=== PATIENT | female | born 1960 | race Caucasian/White ===

== ENCOUNTER 2016-11-23 14:42 | Emergency (ER) | payer MEDICAID ==
[2016-11-23 15:57] VITALS: BP 129/84
[2016-11-23] MEDS ORDERED: Ibuprofen TAB* 600 MG PO ONE (16:16)
[2016-11-23] MEDS ORDERED: Ibuprofen TAB* 600 MG ONE ×2 (16:18)
--- NOTE | 2016-11-23 16:22 | UC ---
Upper Extremity HPI - HPI Summary HPI Summary: Patient woke up in middle of night with severe left wrist and thumb pain, there is redness along the thumb, slightly swollen, painful ROM. unknown LINDA - History of Current Complaint Chief Complaint: UCUpperExtremity Stated Complaint: LEFT HAND SWOLLEN Time Seen by Provider: 11/23/16 16:09 Hx Obtained From: Patient Hx Last Menstrual Period: None ?: No Onset/Duration: Sudden Onset, Lasting Hours Severity Initially: Severe Severity Currently: Severe Location Of Pain: Is Discrete @ - left wrist and thumb + snuff box Character: Sharp, Aching Aggravating Factor(s): Movement Associated Signs And Symptoms: Positive: Negative - Risk Factors Non-Orthopedic Risk Factor: Negative DVT Risk Factors: Negative - Allergies/Home Medications Allergies/Adverse Reactions: Allergies Allergy/AdvReac Type Severity Reaction Status Date / Time Penicillins Allergy Severe Hives Verified 11/23/16 15:57 PMH/Surg Hx/FS Hx/Imm Hx Previously Healthy: Yes Endocrine History Of: Denies: Diabetes, Thyroid Disease, Hyperthyroidism, Hypothyroidism, Dyslipidemia Cardiovascular History Of: Denies: Cardiac Disorders, Hypertension, Pacemaker/ICD, Myocardial Infarction , Congestive Heart Failure, Atrial Fibrillation, Deep Vein Thrombosis, Bleeding Disorders Respiratory History Of: Reports: COPD Denies: Asthma, Bronchitis, Pneumonia, Pulmonary Embolism GI/ History Of: Reports: Gastroesophageal Reflux, Kidney Stones Denies: Ulcer, Gastrointestinal Bleed, Gall Bladder Disease, Diverticulitis, Renal Disease, Urosepsis Neurological History Of: Denies: TIA, CVA, Dementia, Seizures, Migraine Psychological History Of: Denies: Anxiety, Depression, Bipolar Disorder, Schizophrenia, Post Traumatic Stress Disorder Cancer History Of: Reports: Breast Cancer - She had this diagnosed 1-2 years ago. Denies: Lung Cancer, Colorectal Cancer, Prostate Cancer, Cervical Cancer Other History Of: Negative For: HIV, Hepatitis B, Hepatitis C - Surgical History Surgical History: Yes Surgery Procedure, Year, and Place: fistula repair, PARATHYROID SURGERY. right side breast lumpectomy - Family History Known Family History: Positive: Cardiac Disease, Hypertension Negative: Diabetes Family History: no cardio vascular issues in patients lineage - Social History Alcohol Use: Rare Substance Use Type: None Smoking Status (MU): Heavy Every Day Tobacco Smoker Type: Cigarettes Amount Used/How Often: 1/2 PPD Length of Time of Smoking/Using Tobacco: 20 YRS Have You Smoked in the Last Year: Yes - Immunization History Most Recent Influenza Vaccination: none Review of Systems Constitutional: Negative Skin: Other - erythema Eyes: Negative ENT: Negative Respiratory: Negative Cardiovascular: Negative Gastrointestinal: Negative Genitourinary: Negative Motor: Negative Neurovascular: Negative Musculoskeletal: Negative Neurological: Negative Psychological: Negative All Other Systems Reviewed And Are Negative: Yes Physical Exam Triage Information Reviewed: Yes Appearance: Well-Appearing, Well-Nourished, Pain Distress Vital Signs: Initial Vital Signs Temp 99.0 F 11/23/16 15:52 Pulse 92 11/23/16 15:52 Resp 18 11/23/16 15:52 BP 129/84 11/23/16 15:52 Pulse Ox 100 11/23/16 15:52 Vital Signs Reviewed: Yes Eye Exam: Normal Eyes: Positive: Conjunctiva Clear ENT Exam: Normal ENT: Positive: Normal ENT inspection, Hearing grossly normal, Pharynx normal, TMs normal Dental Exam: Normal Neck exam: Normal Neck: Positive: Supple, Nontender, No Lymphadenopathy Respiratory Exam: Normal Respiratory: Positive: Chest non-tender, Lungs clear, Normal breath sounds Cardiovascular Exam: Normal Cardiovascular: Positive: RRR, No Murmur, Pulses Normal Abdominal Exam: Normal Abdomen Description: Positive: Nontender, No Organomegaly, Soft Bowel Sounds: Positive: Present Musculoskeletal Exam: Normal Musculoskeletal: Positive: Strength Limited @, ROM Limited @, Edema @ - along radial side of wrist and into thenar eminence, ROm of thumb and wrist limited in all mothions, Other: - palpation of navicular eliecits pain Neurological Exam: Normal Neurological: Positive: Alert, Muscle Tone Normal Psychological Exam: Normal Skin Exam: Other - erythema along the side of thumb, no bruising, no open areas noted on hand Upper Extremity Course/Dx - Course Course Of Treatment: hx obtained, exam performed, med given for pain, xray obtained, neg for fracture, calcification around the tendon noted, splint applied and referral to ortho given. - Differential Dx/Diagnosis Differential Diagnosis/HQI/PQRI: Contusion, Fracture (Closed), Strain, Sprain, Other - cellulitis Provider Diagnoses: dequervains tendonitis. swelling. wrist pain Discharge - Discharge Plan Condition: Stable Disposition: HOME Patient Education Materials: Tendinitis (ED) Referrals: No Primary Care Phys,NOPCP [Primary Care Provider] - Additional Instructions: use the splint to rest the tendon of your thumb. continue with aleve twice a day for two week to reduce inflammation. follow up with orthopedic if symtpoms to not improve.
--- NOTE | 2016-11-23 17:12 | RAD ---
INDICATION: Pain base of thumb. No known injury COMPARISON: Left wrist the 2015 TECHNIQUE: AP, lateral, and oblique views were obtained. FINDINGS: There is remote posttraumatic and/or inflammatory/degenerative change about the base of the thumb with a soft tissue calcification or ossification. There is no evidence of acute traumatic injury. There are no additional significant bony findings. The soft tissues are normal IMPRESSION: SOFT TISSUE CALCIFICATION OR OSSIFICATION ABOUT THE BASE OF THE THUMB DESCRIBED. NO ACUTE INJURY OR SIGNIFICANT INTERVAL CHANGE.
== END 2016-11-23 17:31 | disposition home or self-care (01) ==
LOC: UCCORT 14:42
DX: M65.4 Radial styloid tenosynovitis [de Quervain] (principal); Z88.0 Allergy status to penicillin; F17.210 Nicotine dependence, cigarettes, uncomplicated
CPT/HCPCS: 99213; A9270-GY; G0463

== ENCOUNTER 2017-06-08 09:14 | Emergency (ER) | payer MEDICAID ==
[2017-06-08 09:30] VITALS: BP 124/72
--- NOTE | 2017-06-08 10:22 | UC ---
Respiratory Complaint HPI - HPI Summary HPI Summary: cough and achiness since yesterday. No known fever. hx of smoking but no known lung disesae. - History of Current Complaint Chief Complaint: UCRespiratory Stated Complaint: ACHY Time Seen by Provider: 06/08/17 10:12 Hx Obtained From: Patient Hx Last Menstrual Period: n/a ?: No Onset/Duration: Gradual Onset, Lasting Hours Timing: Constant Severity Initially: Moderate Severity Currently: Moderate Character: Cough: Nonproductive Aggravating Factors: Deep Breaths, Recumbent Position Alleviating Factors: Nothing Associated Signs And Symptoms: Positive: URI, Nasal Congestion, Hoarseness. Negative: Dyspnea, Fever, Chills, Pleuritic Chest Pain, Wheezing, Hemoptysis, Dizziness, Calf Pain, Calf Swelling, Edema - Risk Factors Pulmonary Embolism Risk Factors: Smoking - Allergies/Home Medications Allergies/Adverse Reactions: Allergies Allergy/AdvReac Type Severity Reaction Status Date / Time Penicillins Allergy Severe Hives Verified 06/08/17 09:30 Home Medications: Home Medications Pantoprazole Sodium 20 mg PO DAILY 06/08/17 [History Confirmed 06/08/17] PMH/Surg Hx/FS Hx/Imm Hx Previously Healthy: No - breast cancer. Other History Of: Negative For: HIV, Hepatitis B, Hepatitis C - Surgical History Surgical History: Yes Surgery Procedure, Year, and Place: fistula repair, PARATHYROID SURGERY. right side breast lumpectomy - Family History Known Family History: Positive: Cardiac Disease, Hypertension Negative: Diabetes Family History: no cardio vascular issues in patients lineage - Social History Alcohol Use: None Substance Use Type: None Smoking Status (MU): Heavy Every Day Tobacco Smoker Type: Cigarettes Amount Used/How Often: 1/2 PPD Length of Time of Smoking/Using Tobacco: 20 YRS Have You Smoked in the Last Year: Yes - Immunization History Most Recent Influenza Vaccination: none Review of Systems ENT: Sinus Congestion Respiratory: Cough All Other Systems Reviewed And Are Negative: Yes Physical Exam Triage Information Reviewed: Yes Appearance: Well-Appearing, No Pain Distress, Well-Nourished Vital Signs: Initial Vital Signs Temp 99.3 F 06/08/17 09:24 Pulse 108 06/08/17 09:24 Resp 20 06/08/17 09:24 BP 124/72 06/08/17 09:24 Pulse Ox 97 06/08/17 09:24 Vital Signs Reviewed: Yes Eye Exam: Normal ENT: Positive: Pharynx normal, TMs normal. Negative: Nasal drainage, Tonsillar swelling, Tonsillar exudate, Trismus Neck exam: Normal Neck: Positive: Supple, Nontender, No Lymphadenopathy Respiratory Exam: Normal Cardiovascular Exam: Normal Abdominal Exam: Normal Musculoskeletal Exam: Normal Neurological Exam: Normal Psychological Exam: Normal Skin Exam: Normal UC Diagnostic Evaluation - Laboratory O2 Sat by Pulse Oximetry: 97 Respiratory Course/Dx - Course Course Of Treatment: congestion cough and achiness. most c/w uri. she will take the azithromycin if this does not improve after day 10. - Differential Dx/Diagnosis Provider Diagnoses: uri Discharge - Discharge Plan Condition: Good Disposition: HOME Prescriptions: Azithromyxin JOSHUA (NF) [Z-Joshua (Zithromax) 250 mg tabs #6] 1 tab PO .TODAY, THEN 1 DAILY #6 tab Benzonatate CAP* [Tessalon 100 MG CAP*] 100 mg PO TID #20 cap Patient Education Materials: Upper Respiratory Infection (ED) Referrals: No Primary Care Phys,NOPCP [Primary Care Provider] - Additional Instructions: return for any worsening.
== END 2017-06-08 10:27 | disposition home or self-care (01) ==
LOC: UCCORT 09:14
DX: J06.9 Acute upper respiratory infection, unspecified (principal); F17.210 Nicotine dependence, cigarettes, uncomplicated; Z88.0 Allergy status to penicillin
CPT/HCPCS: 99212; G0463

== ENCOUNTER 2017-11-06 08:17 | Emergency (ER) | payer MEDICAID ==
[2017-11-06 09:17] VITALS: BP 128/80
[2017-11-06] MEDS ORDERED: Acetaminophen TAB* 325 MG PO ONE (09:36)
--- NOTE | 2017-11-06 09:38 | UC ---
FLU HPI - HPI Summary HPI Summary: body aches cough and fever for 2 days-- - History of Current Complaint Chief Complaint: UCGeneralIllness Stated Complaint: ACHY, CONGESTION Time Seen by Provider: 11/06/17 09:30 Hx Obtained From: Patient Hx Last Menstrual Period: n/a ?: No Onset/Duration: Sudden Onset Severity Currently: Moderate Severity Initially: Moderate Pain Intensity: 8 Pain Scale Used: 0-10 Numeric Associated Signs & Symptoms: Positive: Fever, Myalgia, Cough, Nasal Congestion, Headache Related Hx: Possible Flu/Infectious Exposure - Allergy/Home Medications Allergies/Adverse Reactions: Allergies Allergy/AdvReac Type Severity Reaction Status Date / Time Penicillins Allergy Hives Verified 11/06/17 09:13 PMH/Surg Hx/FS Hx/Imm Hx Previously Healthy: No GI/ History: Gastroesophageal Reflux Psychological History: Depression Cancer History: Breast Cancer Other History Of: Negative For: HIV, Hepatitis B, Hepatitis C - Surgical History Surgical History: Yes Surgery Procedure, Year, and Place: fistula repair, PARATHYROID SURGERY. right side breast lumpectomy - Family History Known Family History: Positive: Cardiac Disease, Hypertension Negative: Diabetes Family History: no cardio vascular issues in patients lineage - Social History Occupation: Employed Full-time - [employer] Lives: With Family Alcohol Use: None Substance Use Type: None Smoking Status (MU): Heavy Every Day Tobacco Smoker Type: Cigarettes Amount Used/How Often: 1/2 PPD Length of Time of Smoking/Using Tobacco: 20 YRS Have You Smoked in the Last Year: Yes Cessation Counseling: Counseled 3+Min - 10 Min - Immunization History Most Recent Influenza Vaccination: none Review of Systems Constitutional: Fever, Chills, Fatigue Skin: Negative Eyes: Negative ENT: Nasal Discharge, Sinus Congestion Respiratory: Cough Cardiovascular: Negative Gastrointestinal: Negative Genitourinary: Negative Motor: Negative Neurovascular: Negative Musculoskeletal: Arthralgia, Myalgia Neurological: Headache Psychological: Negative Is Patient Immunocompromised?: No All Other Systems Reviewed And Are Negative: Yes Physical Exam Triage Information Reviewed: Yes Appearance: Well-Nourished, Ill-Appearing, Pain Distress Vital Signs: Initial Vital Signs Temp 99 F 11/06/17 09:12 Pulse 96 11/06/17 09:12 Resp 18 11/06/17 09:12 BP 128/80 11/06/17 09:12 Pulse Ox 97 11/06/17 09:12 Vital Signs Reviewed: Yes Eye Exam: Normal Eyes: Positive: Conjunctiva Clear ENT Exam: Normal ENT: Positive: Normal ENT inspection, Hearing grossly normal, Pharynx normal, Nasal congestion, TMs normal, Uvula midline. Negative: Tonsillar swelling, Tonsillar exudate, Trismus, Muffled voice, Hoarse voice, Dental tenderness, Sinus tenderness Dental Exam: Normal Neck exam: Normal Neck: Positive: Supple, Nontender, No Lymphadenopathy Respiratory Exam: Normal Respiratory: Positive: Chest non-tender, Lungs clear, Normal breath sounds, No respiratory distress, No accessory muscle use Cardiovascular Exam: Normal Cardiovascular: Positive: RRR, No Murmur, Pulses Normal, Brisk Capillary Refill Musculoskeletal Exam: Normal Musculoskeletal: Positive: Strength Intact, ROM Intact, No Edema Neurological Exam: Normal Neurological: Positive: Alert, Muscle Tone Normal Psychological Exam: Normal Skin Exam: Normal Diagnostics - Laboratory Diagnostic Studies Completed/Ordered: influenza A/B (-) Flu Course/Dx - Course Course Of Treatment: z-max, albuterol, mucinex, increase fluids, nicotine cesasation information, follow with pcp - Differential Dx/Diagnosis Provider Diagnoses: Bronchitis, nicotine dependent Discharge - Discharge Plan Condition: Stable Disposition: HOME Prescriptions: Albuterol HFA INHALER* [Ventolin HFA Inhaler*] 2 puff INH Q4H PRN #1 mdi PRN Reason: cough.chest congestion Azithromycin TAB* [Zithromax TAB (Z-JOSHUA) 250 mg #6 tabs] 2 tab PO .TODAY, THEN 1 DAILY #1 joshua Patient Education Materials: Antitussives (By mouth), How to Use a Metered- Dose Inhaler (ED), How to Stop Smoking (ED), Acute Bronchitis (ED) Forms: *Work Release Referrals: [facility] [place] PHYSICIAN REFERRAL [Outside] - 3 Days
== END 2017-11-06 10:28 | disposition home or self-care (01) ==
LOC: UCCORT 08:17
DX: J40 Bronchitis, not specified as acute or chronic (principal); K21.9 Gastro-esophageal reflux disease without esophagitis; F32.9 Major depressive disorder, single episode, unspecified; Z85.3 Personal history of malignant neoplasm of breast; Z88.0 Allergy status to penicillin; Z71.6 Tobacco abuse counseling; F17.210 Nicotine dependence, cigarettes, uncomplicated
CPT/HCPCS: 87502; 99212; A9270-GY; G0463

== ENCOUNTER 2018-04-05 14:12 | Emergency (ER) | payer MEDICAID ==
[2018-04-05 14:32] VITALS: BP 119/69
--- NOTE | 2018-04-05 15:03 | UC ---
Abdominal Pain Female HPI - HPI Summary HPI Summary: Pt c/o sudden onset of abdomen/pelvic pain that woke her from sleep last night, then c/o sudden onset of four episode of diarrhea that was "blood only". Pt states that she has continuos colicy pain in pelvis/abdomen and pelvic pressure since onset.Pt has hx of breast cancer, has not had a colonoscopy, does not have PCP, and is a current every day smoker No hx of anal fissure or hemorrhoids. Denies food allergies, or recent use of antibiotics. - History of Current Complaint Chief Complaint: UCAbdominalPain Stated Complaint: URINARY/BOWL COMP Time Seen by Provider: 04/05/18 14:32 Hx Obtained From: Patient Hx Last Menstrual Period: n/a ?: No Onset/Duration: Sudden Onset, Lasting Hours Timing: Constant Severity Initially: Severe Severity Currently: Moderate Pain Intensity: 8 Location: Diffuse, Suprapubic Radiates: No Character: Aching, Colicy, Cramping, Dull, Sharp Aggravating Factor(s): Nothing Alleviating Factor(s): Nothing Associated Signs and Symptoms: Positive: Blood in Stool, Diarrhea Allergies/Adverse Reactions: Allergies Allergy/AdvReac Type Severity Reaction Status Date / Time Penicillins Allergy Hives Verified 11/06/17 09:13 PMH/Surg Hx/FS Hx/Imm Hx Previously Healthy: Yes Cancer History: Breast Cancer Other History Of: Negative For: HIV, Hepatitis B, Hepatitis C - Surgical History Surgical History: Yes Surgery Procedure, Year, and Place: fistula repair, PARATHYROID SURGERY. right side breast lumpectomy - Family History Known Family History: Positive: Cardiac Disease, Hypertension Negative: Diabetes Family History: no cardio vascular issues in patients lineage - Social History Occupation: Retired Lives: With Family Alcohol Use: None Substance Use Type: None Smoking Status (MU): Heavy Every Day Tobacco Smoker Type: Cigarettes Amount Used/How Often: 1/2 PPD Length of Time of Smoking/Using Tobacco: 20 YRS Have You Smoked in the Last Year: Yes Household Exposure Type: Cigarettes - Immunization History Most Recent Influenza Vaccination: none Review of Systems Constitutional: Fatigue Skin: Negative Eyes: Negative ENT: Negative Respiratory: Negative Cardiovascular: Negative Gastrointestinal: Abdominal Pain, Diarrhea, Other - BRBPR Genitourinary: Negative Motor: Negative Neurovascular: Negative Musculoskeletal: Negative Neurological: Negative Psychological: Negative Is Patient Immunocompromised?: No All Other Systems Reviewed And Are Negative: Yes Physical Exam Triage Information Reviewed: Yes Appearance: Ill-Appearing Vital Signs: Initial Vital Signs Temp 98.6 F 04/05/18 14:25 Pulse 101 04/05/18 14:25 Resp 16 04/05/18 14:25 BP 119/69 04/05/18 14:25 Pulse Ox 96 04/05/18 14:25 Vital Signs Reviewed: Yes Eye Exam: Normal ENT Exam: Normal ENT: Positive: Hearing grossly normal Dental: Positive: Gross Decay/Caries @ Neck exam: Normal Respiratory Exam: Normal Respiratory: Positive: Normal breath sounds Cardiovascular Exam: Normal Abdominal Exam: Other Abdomen Description: Positive: Other: - generalized tenderness, c/o increased pain wiht examination suprapubic Musculoskeletal Exam: Normal Neurological Exam: Normal Psychological Exam: Normal Skin Exam: Normal Diagnostics - Radiology No standard instances Radiology Interpretation Completed By: Radiologist - IMPRESSION: Mucosal thickening of the descending colon and sigmoid colon with some minimal pericolonic infiltration of fat suggestive of colitis although diverticulitis is not excluded. No pericolonic abscess is noted. No evidence of obstructive uropathy is noted. 2.1 cm low-density lesion in the left adrenal gland likely represents an adenoma. Abd Pain Female Course/Dx - Course Course Of Treatment: I discussed with the pt the need to establish care with a PCP as soon as possible and if symptoms worsen, do not improve that she needs to seek care at the closest emergency room. Pt verbalized understanding and agreed to plan of care. - Differential Dx/Diagnosis Differential Diagnosis: Diverticulitis Provider Diagnoses: bloody stool. abdominal pain Discharge - Sign-Out/Discharge Documenting (check all that apply): Patient Departure - Discharge Plan Condition: Stable Disposition: HOME Prescriptions: Ciprofloxacin TAB* [Cipro 500 MG TAB*] 500 mg PO BID #20 tab Patient Education Materials: Loperamide (By mouth), Rectal Bleeding (ED), Acute Diarrhea (ED), Acute Abdominal Pain (ED), Colitis (ED) Referrals: [facility] [place] [facility]IAN REFERRAL [Outside] - As Soon As Possible Christine Xavier DO [Doctor of Osteopathy] - As Soon As Possible No Primary Care Phys,NOPCP [Primary Care Provider] - Additional Instructions: Please establish care immediately with a PCP and if needed, a pantographer. We have provided contact information for both. If symptoms do not improve, please seek care immediately at the closest emergency room. Per institutional requirements, I have reviewed the chart, however, I was not consulted specifically or made aware of this patient by the above midlevel provider. I did not personally evaluate, interact with , or disposition this patient. - Billing Disposition and Condition Condition: STABLE Disposition: Home
--- NOTE | 2018-04-05 15:32 | RAD ---
Indication: Lower abdominal pain. CT of the abdomen and pelvis was performed without oral or IV contrast. Coronal and sagittal reconstructed images were obtained. The lung bases demonstrate no pleural fluid, nodules or masses. Heart is of normal size without evidence of pericardial effusion. Liver is normal in size. No focal lesions or intrahepatic ductal dilatation is noted. The gallbladder demonstrates no calcified gallstones. No pericholecystic fluid or wall thickening is noted. The common bile duct is not dilated. The pancreas demonstrates no mass or pancreatic duct dilatation. The spleen is normal in size. There is enlargement of the left adrenal gland with suggestion of a mass at the apex measuring 2.1 cm. Density is -4 to -32 and this likely represents an adenoma. The right adrenal is unremarkable. The kidneys demonstrate no hydronephrosis in either kidney although a nonobstructing calculi in the lower pole of the left kidney measuring up to 6.7 mm and in the lower pole of the right kidney measuring up to 3 mm. No retroperitoneal lymphadenopathy is noted. No dilated loops of bowel are noted. The stomach is partially collapsed. Aorta and inferior vena cava are unremarkable although there is atherosclerosis of the aorta. No retroperitoneal lymphadenopathy is CT of the pelvis demonstrates normal appendix. This is mucosal thickening of the descending colon extending to the sigmoid colon with some pericolonic infiltration of fat. Findings are suspicious for colitis. The possibility of diverticulitis is considered less likely although not totally excluded. No evidence of pericolonic abscess is noted. No evidence of extraluminal air is noted. The uterus and ovaries are grossly unremarkable. Urinary bladder is unremarkable. IMPRESSION: Mucosal thickening of the descending colon and sigmoid colon with some minimal pericolonic infiltration of fat suggestive of colitis although diverticulitis is not excluded. No pericolonic abscess is noted. No evidence of obstructive uropathy is noted. 2.1 cm low-density lesion in the left adrenal gland likely represents an adenoma.
== END 2018-04-05 15:57 | disposition home or self-care (01) ==
LOC: UCCORT 14:12
DX: R10.9 Unspecified abdominal pain (principal); K92.1 Melena; Z88.0 Allergy status to penicillin; F17.210 Nicotine dependence, cigarettes, uncomplicated
CPT/HCPCS: 74176; 81003; 82270; 99212; G0463

== ENCOUNTER 2018-06-12 08:10 | Emergency (ER) | payer MEDICAID ==
[2018-06-12 08:26] VITALS: BP 113/72
--- NOTE | 2018-06-12 08:44 | UC ---
UC General HPI - HPI Summary HPI Summary: 57-year-old female history of breast cancer not on any chemotherapy currently, presents with approximately 3 days of dysuria without hematuria. Denies any fever or back pain or flank pain. No prior episodes. No nausea or vomiting. - History of Current Complaint Chief Complaint: UCGU Stated Complaint: URINARY COMPLAINT Time Seen by Provider: 06/12/18 08:29 Hx Last Menstrual Period: n/a Pain Intensity: 10 - Allergy/Home Medications Allergies/Adverse Reactions: Allergies Allergy/AdvReac Type Severity Reaction Status Date / Time Penicillins Allergy Hives Verified 06/12/18 08:22 PMH/Surg Hx/FS Hx/Imm Hx - Additional Past Medical History Additional PMH: Breast cancer in the past Previously Healthy: Yes Other History Of: Negative For: HIV, Hepatitis B, Hepatitis C - Surgical History Surgical History: Yes Surgery Procedure, Year, and Place: fistula repair, PARATHYROID SURGERY. right side breast lumpectomy - Family History Known Family History: Positive: Cardiac Disease, Hypertension Negative: Diabetes Family History: no cardio vascular issues in patients lineage - Social History Alcohol Use: Occasionally Substance Use Type: None Smoking Status (MU): Heavy Every Day Tobacco Smoker Type: Cigarettes Amount Used/How Often: 1/2 PPD Length of Time of Smoking/Using Tobacco: 20 YRS Have You Smoked in the Last Year: Yes Household Exposure Type: Cigarettes - Immunization History Most Recent Influenza Vaccination: none Review of Systems Constitutional: Negative Skin: Negative ENT: Negative Respiratory: Negative Cardiovascular: Negative Gastrointestinal: Negative Genitourinary: Dysuria Musculoskeletal: Negative Psychological: Negative All Other Systems Reviewed And Are Negative: Yes Physical Exam - Summary Physical Exam Summary: Gen: alert, in no acute distress HEENT: EOMI, normocephalic, atruamatic Neck: supple, no masses CV: Normal s1 s2, no murmurs Resp: normal breath sounds b/l GI: no tenderness, no masses : Minimal suprapubic tenderness without rebound or guarding Musculoskeletal: normal ROM all 4 extremities Neuro: no obvious focal neurological deficits Skin: no rash Lymph: no lymphadenopathy Psych: appropriate affect, oriented Triage Information Reviewed: Yes Vital Signs: Initial Vital Signs Temp 36.5 C 06/12/18 08:19 Pulse 88 06/12/18 08:19 Resp 15 06/12/18 08:19 BP 113/72 09/24/18 08:19 Pulse Ox 98 06/12/18 08:19 Course/Dx - Course Course Of Treatment: Patient started on Macrobid twice a day, has a penicillin allergy and says it makes her short of breath. Agrees to and understands discharge instructions. - Differential Dx - Multi-Symptom Provider Diagnoses: UTI Discharge - Sign-Out/Discharge Documenting (check all that apply): Patient Departure All imaging exams completed and their final reports reviewed: No Studies - Discharge Plan Condition: Stable Disposition: HOME Prescriptions: Nitrofurantoin Monohyd/M-Cryst [Macrobid 100 mg Capsule] 100 mg PO BID 5 Days # 10 cap Patient Education Materials: Urinary Tract Infection in Women (DC) Referrals: No Primary Care Phys,NOPCP [Primary Care Provider] - Katie Glover MD [Medical Doctor] - Rubin Choi MD [Medical Doctor] - Additional Instructions: PLEASE MAKE AN APPOINTMENT TO BE SEEN BY A PRIMARY CARE DOCTOR WITHIN 1 WEEK PLEASE REPORT TO THE ER FOR ANY WORSENING OR CONCERNING SYMPTOMS - Billing Disposition and Condition Condition: STABLE Disposition: Home
== END 2018-06-12 08:48 | disposition home or self-care (01) ==
LOC: UCCORT 08:10
DX: N39.0 Urinary tract infection, site not specified (principal); Z85.3 Personal history of malignant neoplasm of breast; Z88.0 Allergy status to penicillin; F17.210 Nicotine dependence, cigarettes, uncomplicated
CPT/HCPCS: 81003; 87086; 99211; G0463

== ENCOUNTER 2018-06-22 15:26 | Emergency (ER) | payer MEDICAID ==
[2018-06-22 16:28] VITALS: BP 120/83
--- NOTE | 2018-06-22 17:11 | UC ---
Abdominal Pain Female HPI - HPI Summary HPI Summary: Pt presents with intermittent, persistent LLQ pain that began ~ 06/09/18. Pt was seen twice at for c/o LLQ pain and dysuria prior to todays visit. Pt has a hx of breast cancer, not currently receiving chemo, and does not have PCP. Has not had colonoscopy. Pt reports change in bowel pattern and now is constipated. Pt regular BM pattern is daily. Some days she reports she does not empty her bowel BM today and reports it was dark green. - History of Current Complaint Chief Complaint: UCGeneralIllness Stated Complaint: LOWER LEFT ABD PAIN Time Seen by Provider: 06/22/18 17:02 Hx Obtained From: Patient Hx Last Menstrual Period: n/a ?: No Onset/Duration: Gradual Onset, Lasting Weeks, Still Present Timing: Constant Severity Initially: Mild Severity Currently: Moderate Pain Intensity: 6 Location: Discrete At: LLQ Radiates to: Inguinal Character: Burning, Colicy, Cramping, Dull, Sharp Aggravating Factor(s): Nothing Alleviating Factor(s): Nothing Associated Signs and Symptoms: Positive: Constipation Allergies/Adverse Reactions: Allergies Allergy/AdvReac Type Severity Reaction Status Date / Time Penicillins Allergy Hives Verified 06/22/18 16:21 PMH/Surg Hx/FS Hx/Imm Hx Previously Healthy: No Respiratory History: COPD - smoker Cancer History: Breast Cancer Other History Of: Negative For: HIV, Hepatitis B, Hepatitis C - Surgical History Surgical History: Yes Surgery Procedure, Year, and Place: fistula repair, PARATHYROID SURGERY. right side breast lumpectomy - Family History Known Family History: Positive: Cardiac Disease, Hypertension Negative: Diabetes Family History: no cardio vascular issues in patients lineage - Social History Occupation: Employed Full-time Lives: With Family Alcohol Use: Rare Substance Use Type: None Smoking Status (MU): Heavy Every Day Tobacco Smoker Type: Cigarettes Amount Used/How Often: 1/2 PPD Length of Time of Smoking/Using Tobacco: 20 YRS Have You Smoked in the Last Year: Yes Household Exposure Type: Cigarettes - Immunization History Most Recent Influenza Vaccination: none Vaccination Up to Date: No Review of Systems Constitutional: Negative Skin: Negative Eyes: Negative ENT: Negative Respiratory: Negative Cardiovascular: Negative Gastrointestinal: Abdominal Pain Genitourinary: Negative Motor: Negative Neurovascular: Negative Musculoskeletal: Negative Neurological: Negative Psychological: Negative Is Patient Immunocompromised?: No All Other Systems Reviewed And Are Negative: Yes Physical Exam Triage Information Reviewed: Yes Appearance: Well-Appearing Vital Signs: Initial Vital Signs Temp 97.3 F 06/22/18 16:23 Pulse 97 06/22/18 16:23 Resp 18 06/22/18 16:23 BP 120/83 06/22/18 16:23 Pulse Ox 95 06/22/18 16:23 Vital Signs Reviewed: Yes Eye Exam: Normal ENT Exam: Normal Dental: Positive: Gross Decay/Caries @, Dental Fracture @ Neck exam: Normal Respiratory Exam: Normal Cardiovascular Exam: Normal Abdomen Description: Positive: Other: - LLQ pain Bowel Sounds: Positive: Present Musculoskeletal Exam: Normal Neurological Exam: Normal Psychological Exam: Normal Skin Exam: Normal Abd Pain Female Course/Dx - Course Course Of Treatment: I discussed with the pt the need to make an apoinment with a PCP as soon as possible. Pt verbalized understanding and agreed to plan of care. - Differential Dx/Diagnosis Differential Diagnosis: Constipation, Diverticulitis, Gall Bladder Disease Provider Diagnoses: abdominal pain Discharge - Sign-Out/Discharge Documenting (check all that apply): Patient Departure All imaging exams completed and their final reports reviewed: No Studies - Discharge Plan Condition: Stable Disposition: HOME Patient Education Materials: Abdominal Pain (ED) Forms: *Work Release Referrals: [facility] [Outside] - As Soon As Possible No Primary Care Phys,NOPCP [Primary Care Provider] - Additional Instructions: Please note that if your symptoms worsen then you need to seek care immediately at the closest emergency department. - Billing Disposition and Condition Condition: STABLE Disposition: Home
== END 2018-06-22 17:18 | disposition home or self-care (01) ==
LOC: UCCORT 15:26
DX: R10.32 Left lower quadrant pain (principal); Z88.0 Allergy status to penicillin; F17.210 Nicotine dependence, cigarettes, uncomplicated
CPT/HCPCS: 99211; G0463

== ENCOUNTER 2018-10-12 08:03 | Emergency (ER) | payer MEDICAID, OTHER ==
[2018-10-12 08:18] VITALS: BP 122/68
--- NOTE | 2018-10-12 08:47 | UC ---
General HPI - HPI Summary HPI Summary: Patient fell in parking lot on her way to work this morning just before 7 AM. She works at [employer] in [place]. States she thinks she tripped or stepped on a rock. No lightheadedness. No LOC. No head injury. Landed on mainly on her right knee. Top of her right foot hurts as well. Is able to ambulate. No Hx of broken bones in the past. - History of Current Complaint Chief Complaint: UCLowerExtremity Stated Complaint: RIGHT KNEE/ANKLE INJURY - W/C Time Seen by Provider: 10/12/18 08:38 Hx Last Menstrual Period: n/a Pain Intensity: 7 - Allergy/Home Medications Allergies/Adverse Reactions: Allergies Allergy/AdvReac Type Severity Reaction Status Date / Time Penicillins Allergy Hives Verified 10/12/18 08:17 Home Medications: Home Medications Acetaminophen [Eq 8Hr Arthritis Pain Rel] 1,300 mg PO ONCE PRN 10/12/18 [ History Confirmed 10/12/18] PMH/Surg Hx/FS Hx/Imm Hx Previously Healthy: Yes Other History Of: Negative For: HIV, Hepatitis B, Hepatitis C - Surgical History Surgical History: Yes Surgery Procedure, Year, and Place: fistula repair, PARATHYROID SURGERY. right side breast lumpectomy - Family History Known Family History: Positive: Cardiac Disease, Hypertension Negative: Diabetes Family History: no cardio vascular issues in patients lineage - Social History Alcohol Use: Rare Substance Use Type: None Smoking Status (MU): Heavy Every Day Tobacco Smoker Type: Cigarettes Amount Used/How Often: 1/2 PPD Length of Time of Smoking/Using Tobacco: 20 YRS Have You Smoked in the Last Year: Yes Household Exposure Type: Cigarettes - Immunization History Most Recent Influenza Vaccination: none Vaccination Up to Date: No Review of Systems All Other Systems Reviewed And Are Negative: Yes Physical Exam Triage Information Reviewed: Yes Vital Signs: Initial Vital Signs Temp 98.1 F 10/12/18 08:14 Pulse 74 10/12/18 08:14 Resp 18 10/12/18 08:14 BP 122/68 10/12/18 08:14 Pulse Ox 98 10/12/18 08:14 Vital Signs Reviewed: Yes Eye Exam: Normal Musculoskeletal Exam: Other - 3 cm abrasion on anterior knee on right. Pain over abrasion and lateral patella. No significant edema or ecchymosis. Right ankle, mild tendernss on dosum of foot. No ankle tenderness. FROM of ankle. Some pain with ROM of right knee Diagnostics - Radiology Right Knee xray Radiology Interpretation Completed By: Radiologist Summary of Radiographic Findings: No acute injury. If symptoms persist, consider repeat imaging Course/Dx - Course Course Of Treatment: This is a 58 yr old who fell in parking lot at work and landed on right knee. Assessment. Right knee xray: Negative for acute injury. Dx: Right knee contusion and abrasion. Patient unclear of last tetanus shot - Tdap given here. Plan. Follow up with Dr. Alejandro regarding a possible workers comp injury if symptoms persist. Recommend ice, rest, elevate and ibuprofen as needed for pain/swelling. If able to ambulate and stand tomorrow recommend can return to work with frequent breaks - Diagnoses Provider Diagnosis: Knee contusion Discharge - Sign-Out/Discharge Documenting (check all that apply): Post-Discharge Follow Up All imaging exams completed and their final reports reviewed: Yes - Discharge Plan Condition: Good Disposition: HOME Referrals: Era Mendez NP [Primary Care Provider] - Jonathan Alejandro MD [Medical Doctor] - Additional Instructions: Follow up with Dr. Alejandro regarding a possible workers comp injury if symptoms persist Recommend ice, rest, elevate and ibuprofen as needed for pain/swelling If able to ambulate and stand tomorrow recommend can return to work with frequent breaks Keep abrasion clean and dry with bandage - wash with soap and water daily - Billing Disposition and Condition Condition: GOOD Disposition: Home
[2018-10-12] MEDS: Tetan/Diph/Pertus SYR(Tdap)* 0.5 ML SYR(BOOSTRIX) use SYR IM ONE (09:25)
== END 2018-10-12 09:30 | disposition home or self-care (01) ==
LOC: UCCORT 08:03
DX: S80.01XA Contusion of right knee, initial encounter (principal); W19.XXXA Unspecified fall, initial encounter; Y92.481 Parking lot as the place of occurrence of the external cause; Z88.0 Allergy status to penicillin; F17.210 Nicotine dependence, cigarettes, uncomplicated
CPT/HCPCS: 90471; 90715; 99212; G0463

== ENCOUNTER 2018-11-07 09:37 | Emergency (ER) | payer MEDICAID, OTHER ==
--- OUTSIDE RECORDS SUMMARY | 2018-11-07 09:59 | XMS REPORT | Continuity of Care Document ---
:1960 External Reference #:[id number] Author Name Russel Madrigal MD Address [address] [place] [address] Care Team Providers Name Role Phone Carrie Dangelo RNNP Care Team Information Telephonic Nurse Case Manager Unavailable Era Mendez FNP Primary Care Physician Unavailable Payers Date Identification Numbers Payment Provider Subscriber Policy Number: [id number] Medicaid Shannan Zafar PayID: [id number] [place] [address] Expires: 2012 Policy Number: [id number] Healthy Living Partner Shannan Zafar PayID: [id number] [place] [address] Advance Directives Description No Information Available Problems Date Description Provider Status Onset: 11/01/2012 Breast lump Fazal Enamorado MD Active Onset: 11/08/2012 Malignant neoplasm of female breast Fazal Enamorado MD Active Onset: 05/30/2013 History and physical examination, Fazal Enamorado MD Active follow-up Family History Date Family Member(s) Observation Comments Father Heart Disease Father Cancer Mother Chronic Obstructive Pulmonary Disease (COPD) : (age 77 Mother due to COPD Years) Mother Cancer First Brother Heart Disease Second Brother Fibromyalgia Second Brother IBS First Sister Heart Disease : (age 83 Paternal Grandfather due to Unknown Causes Years) : (age 57 Paternal Grandmother due to Aneurysm Brain Years) Maternal Grandfather due to Unknown Causes () Social History Type Date Description Comments Sex Unknown Marital Status Lives With Home Environment Lives With Diet Patient follows no dietary restrictions 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 Working Tobacco Use Start: Unknown currently smokes 1/2 x 30 yrs Pack Daily Smokeless Tobacco Never Used Smokeless Tobacco ETOH Use Rarely consumes alcohol Tobacco Use Start: Unknown Light tobacco smoker (10 or fewer cigarettes/day) Recreational Drug Use Denies Drug Use Smoking Status Reviewed: 10/31/18 Light tobacco smoker (10 or fewer cigarettes/day) Allergies, Adverse Reactions, Alerts Date Description Reaction Status Severity Comments 10/27/2012 Penicillin hives, can't breathe Active Medications Medication Date Status Form Strength Qnty SIG Indications Ordering Provider Anastrozole / Active Tablets 1mg take 1 Unknown 0000 tablet once daily Venlafaxine HCL ER / Active Caps ER 75mg 1 po Unknown 0000 24HR daily No Active 11/01/ Hx Unknown Medications 2012 - 2012 Acetaminophen/Codei / Hx Tablets 300-60mg Unknown ne #4 0000 - 2017 Ondansetron HCL / Hx Tablets 8mg q 8 hr/ Unknown 0000 - prn 2017 Prochlorperazine / Hx Tablets 10mg po prn Unknown Maleate 0000 - nausea 2017 Immunizations CPT Code Status Date Vaccine Lot # [id number] Given 07/14/2018 Influenza Virus Vaccine, Quadrivalent, 36 Mos+, [id number] .[id number] Vital Signs Date Vital Result Comment 10/31/2018 11:07am BP Systolic 123 mmHg BP Diastolic 88 mmHg Body Temperature 98.5 F Heart Rate 96 /min Respiratory Rate 20 /min Height 64.50 inches 5'4.50" Weight 177.38 lb BMI (Body Mass Index) 30.0 kg/m2 BSA (Body Surface Area) 1.87 m2 [place] body weight in kilograms 56 kg O2 % BldC Oximetry 91 % Ra Pain Level 0 09/28/2018 9:56am BP Systolic Sitting Left Arm 133 mmHg BP Diastolic Sitting Left Arm 83 mmHg Heart Rate 97 /min Respiratory Rate 18 /min Height 64.50 inches 5'4.50" Weight 180.00 lb BMI (Body Mass Index) 30.4 kg/m2 BSA (Body Surface Area) 1.88 m2 [place] body weight in kilograms 56 kg O2 % BldC Oximetry 93 % 07/14/2018 1:04pm BP Systolic Sitting Left Arm 116 mmHg BP Diastolic Sitting Left Arm 74 mmHg Heart Rate 84 /min Respiratory Rate 18 /min Height 64.50 inches 5'4.50" Weight 179.00 lb BMI (Body Mass Index) 30.2 kg/m2 BSA (Body Surface Area) 1.88 m2 [place] body weight in kilograms 56 kg 05/30/2013 9:55am BP Systolic Sitting Left Arm 122 mmHg BP Diastolic Sitting Left Arm 78 mmHg Heart Rate 100 /min Respiratory Rate 16 /min Height 64.50 inches 5'4.50" Weight 173.00 lb BMI (Body Mass Index) 29.2 kg/m2 BSA (Body Surface Area) 1.85 m2 11/01/2012 1:24pm BP Systolic Sitting Right Arm 124 mmHg BP Diastolic Sitting Right Arm 79 mmHg Heart Rate 89 /min Respiratory Rate 20 /min Height 64.50 inches 5'4.50" Weight 167.00 lb BMI (Body Mass Index) 28.2 kg/m2 Results Test Date Facility Test Result H/L Range Note Urine Dipstick 07/14/2018 [facility] Ua Clarity - Clear Ua Leuko - Negative Ua Nitrite - Negative Ua Urobilinogen - Low 0.2 - 1.0 E.U./dL Ua Protein - Negative Ua PH 6 Low 6.5-7.5 Ua Blood - Negative Ua Specific [place] 1.020 1.010-1.030 Ua Ketones - Negative Ua Bilirubin - Negative Ua Glucose - Negative T7/TSH 07/14/[address] T3 Uptake 30 % Low 31-39 1 [address] [place] [address] [phone] Thyroxine (T4) 11.2 g/dL N 4.7-13.3 T7 3.36 g/dL Low 5.0-12.0 Thyroid Stim Hormone 1.41 uIU/mL N 0.30-4.20 CBC W/Automated Diff 07/14/[address] White Blood 7.4 K/uL N 3.1-10.7 [address] [facility] [place] [address] [phone] Red Blood Count 4.46 M/uL N 3.90-5.40 Hemoglobin 13.6 gm/dL N 11.6-15.8 Hematocrit 41.5 % N 36.0-46.1 Mean Cell Volume 93.0 fl N 80.9-99.0 Mean Corpuscular HGB 30.5 pg N 25.9-32.7 Mean Corpuscular HGB Conc 32.8 g/dL N 30.8-34.3 Platelet Count 318 K/uL N 155-360 Red Cell Distri Width SD 49.9 fl High 3-47 Red Cell Distri Width %CV 15.0 % High 11.7-14.4 Mean Platelet Volume 10.2 fL N 8.9-12.4 Neut% 51.9 % N 40.4-72.8 Lymph % 38.4 % N 20.0-42.0 [place] % 6.4 % N 4.3-13.2 Eo% 3.0 % N 0.0-6.6 Bas% 0.3 % N 0.0-1.1 Neut# 3.84 K/uL N 1.8-7.0 Lymph # 2.84 K/uL N 1.0-4.0 [place] # 0.47 K/uL N 0.3-0.9 Eos # 0.22 K/uL N 0.0-0.5 Baso # 0.02 K/uL N 0.0-0.1 Comprehensive Metabolic 07/14/[address] Glucose 78 mg/dL N 74 -106 Panel [address] [place], [place] [id number] [phone] BUN 12 mg/dL N 7-18 Creatinine 0.7 mg/dL N 0.6-1.3 Glom Filtration Rate, Estimate >60 mL/min >60 If >60 mL/min >60 2 BUN/Creat 17.1 ratio Sodium 142 mmol/L N 136-145 Potassium 4.4 mmol/L N 3.5-5.1 Chloride 108 mmol/L High 98-107 Carbon Dioxide 29 mmol/L N 21-32 Anion Gap 5 mEq/L Low 8-16 Calcium 8.6 mg/dL N 8.5-10.1 Total Protein 7.8 g/dL N 6.4-8.2 Albumin 3.8 g/dL N 3.4-5.0 Globulin 4.0 g/dL N 1.9-4.3 Alb/Glob 1.0 ratio Bilirubin,Total 0.2 mg/dL N 0.2-1.0 Sgot/Ast 11 U/L Low 15-37 3 SGPT/Alt 18 U/L N 12-78 Alkaline Phosphatase 81 U/L N 45-117 LDL Cholesterol Profile 07/14/2018 [facility] [address] Cholesterol 168 mg/dL <[address] [place] [address] [phone] Triglycerides 85 mg/dL <150 5 HDL Cholesterol 69 mg/dL >40 6 LDL-Cholesterol 82 mg/dL < 100 7 Glycohemoglobin A1c 07/14/2018 [facility] [address] Glycohemoglobin 5.6 % N 4.2-6.[address] (A1c) [place] [address] [phone] eAG 114 mg/dL Laboratory test 05/22/2013 [facility] Breast Biopsy - See Note [address] [place] [address] [phone] Basic Metabolic 05/18/2013 [facility] Glucose 74 mg/dL Low 76-[address] [place] [address] [phone] BUN 7 mg/dL 5-23 Creatinine 0.7 mg/dL 0.5-1.4 Glom Filtration Rate, Estimate >60 mL/min >60 If >60 mL/min >60 10 BUN/Creat 10.0 ratio Sodium 140 mmol/L 136-145 Potassium 4.3 mmol/L 3.5-5.1 Chloride 110 mmol/L High 98-107 Carbon Dioxide 24 mEq/L 18-29 Anion Gap 10 mEq/L 8-16 Calcium 11.5 mg/dL High 8.5-10.1 CBC 05/18/2013 [facility] White Blood Count 5.1 K/uL 3.1-10.[address] [place] [address] [phone] Red Blood Count 3.15 M/uL Low 3.90-5.40 Hemoglobin 11.5 gm/dL Low 11.6-15.8 Hematocrit 35.8 % Low 36.0-46.1 Mean Cell Volume 113.7 fl High 80.9-99.0 Mean Corpuscular HGB 36.5 pg High 25.9-32.7 Mean Corpuscular HGB Conc 32.1 g/dL 30.8-34.3 Platelet Count 325 K/uL 155-360 Red Cell Distri Width %CV 15.2 % High 11.7-14.4 Mean Platelet Volume 9.5 fL 8.9-12.4 Laboratory test 11/03/2012 [facility] Lymph Node Biopsy See Note 11 [place] [address] [place] [address] [phone] 1 Z13.0 2 Note: Persistent reduction for 3 months or more in an eGFR <60 mL/min/1.73 m2 defines CKD. Patients with eGFR values >/=60 mL/min/1.73 m2 may also have CKD if evidence of persistent proteinuria is present. The original MDRD equation for estimated GFR is not valid for patients less than 18 years of age. Additional information may be found at www.kdoqi.org. 3 Values below the stated reference ranges of AST and ALT can be seen in normal populations. Clinical correlation is suggested. 4 Reference Guidelines*: Desirable: ........... < 200 mg/dL Borderline High: ..... 200-239 mg/dL High: ................ >=240 mg/dL * The National Cholesterol Education Program (NCEP) 5 Reference Guidelines*: Normal: ............. < 150 mg/dL Borderline High: .... 150-199 mg/dL High: ............... 200-499 mg/dL Very High: .......... > 500 mg/dL * Source: National Cholesterol Education Program (NCEP) 6 Reference Guidelines*: Low HDL: ..... < 40 mg/dL Normal: ..... 40-60 mg/dL Desirable: ... > 60 mg/dL *The National Cholesterol Education Program(NCEP) 7 Reference Guidelines*: Optimal:........... <100 mg/dL Near Optimal....... 100-129 mg/dL Borderline High.... 130-159 mg/dL High............... 160-189 mg/dL Very High.......... >=190 mg/dL * Source: National Cholesterol Education Program (NCEP) 8 Elevated levels of HbA1c suggest the need for more aggressive treatment of glycemia. The [place] Diabetes [employer] recommends that a primary goal of therapy should be a HbA1c of <7% and that physicians should re-evaluate the treatment regimen in patients with HbA1c values consistently >8%. 9 OPERATION/PROCEDURE Needle localization right partial mastectomy, sentinel lymph node biopsy DIAGNOSIS: PART 1: "SENTINEL LYMPH NODE BIOPSY": NO METASTASIS SEEN IN THREE LYMPH NODES (0/3). PART 2: "RIGHT BREAST MASS": SMALL FOCI OF MARKEDLY ATYPICAL DUCTAL CELLS IN A FIBROTIC BACKGROUND, CONSISTENT WITH RESIDUAL HIGH GRADE INVASIVE DUCTAL CARCINOMA, SEE MICROSCOPIC DESCRIPTION. MARGINS ARE FREE OF INVASIVE CARCINOMA. DUCTAL CARCINOMA IN SITU, HIGH GRADE, SOLID TYPE, LESS THAN 1 MM FROM LATERAL MARGIN. ESTIMATED PATHOLOGIC STAGING: pT1c, N0, MX. FIBROCYSTIC CHANGE CONSISTING OF STROMAL FIBROSIS, DUCTAL DILATION, CYST FORMATION AND MICROCALCIFICATIONS ASSOCIATED WITH FIBROSIS. MYA/stoney 12"05 INTERPRETATION COMMENT The patient received chemotherapy prior to surgery, per Dr. Enamorado's office ([place]). The diffuse fibrosis with focal calcification is most likely a therapy effect. GROSS Part 1. Received in a single container labeled, "SENTINEL LYMPH NODE BIOPSY SPECIMEN". The specimen is received fresh and contains a fat pad overall measuring 5.0 x 3.5 x 0.6 cm. After manual defatting, three lymph nodes ranging in size between 0.7 cm. in greatest dimension up to 1.3 x 1.2 x 0.5 cm. are retrieved. These are thinly sliced and submitted in their individual cassettes A-C. The remaining fat pad is submitted in cassette D. No tissue remaining. Part 2. Received on a radiographic tray in the fresh state labeled, "RIGHT BREAST MASS". This yellow fatty piece of tissue measures 8.3 x 5.2 x 2.6 cm. in overall dimensions. There are orienting sutures as well as two metal guide wires. There is a long single suture, which is said to be lateral, and this is painted yellow. The GROSS (Continued) opposite side is painted orange, corresponding to medial. A double suture is said to be deep, which I interpret to be posterior and opposite the anterior surface, which has wires. The posterior surface is painted black and the anterior red. The remaining short suture designates the superior surface, which is painted blue and the last remaining opposite surface is interpreted to be inferior and this is painted green. The specimen is subsequently serially sectioned. A metal clip is located 0.9 cm. from the anterior margin, and a greater distance from all of the margins as follows: green-2.4 cm., black 3.1 cm. The surrounding area of this metallic clip shows soft pink tissue with some slight increased consistency in areas bordering the red painted anterior surface. In this area, slightly increased palpable consistency is present over an area approximating 1.1 x 0.7 x 0.6 cm. Electronics Installer sections are submitted within six lettered cassettes with the first two cassettes encompassing the area in question. The balance of tissue is notable for some whitish areas of pliable consistency adjacent to the green painted border measuring up to 1.1 x 1.0 x 0.8 cm. in overall dimension. Tissue remaining. WS/clf Additional sections from the remaining fibrotic area are submitted in blocks G-I. JW MICROSCOPIC Part 1: Sections show lymph nodes without evidence of epithelial malignant cells. Part 2: Sections from the fibrotic area reveal rare clusters of markedly atypical ductal cells with slightly irregular nuclear membrane, powdery chromatin and prominent nucleoli. Focally there is a dilated duct lined by atypical ductal cells with similar morphology. The background breast tissue is several changes characterized by : an increase in stromal fibrosis, ductal dilation and cyst formation. There are microcalcifications associated with fibrosis. Greatest dimension: Cannot be assessed due to treatment effects. Histologic type: Residual invasive ductal carcinoma. Histologic grade: High grade, see ([id number]). In situ component: Ductal carcinoma in situ, high grade, solid type. Margins: No malignancy seen at inked margins. Ductal carcinoma in situ is less than 1 mm from lateral margin. Vascular invasion: Not seen. Perineural invasion: Not seen. Pathologic staging: pT1c, N0, MX (tumor size according to previous biopsy, [id number]). Hormonal receptors and Fua4czi reported in [id number]: Estrogen receptor: > 90% nuclear stain, high positive. Progesterone receptor: 5-10% nuclear stain, positive. qaf2xvm: 3+. PRE OPERATIVE DIAGNOSIS Right breast cancer REVIEW CODE CODE: I NAVEED Sotelo MD 05/24/13 1248 10 Note: Persistent reduction for 3 months or more in an eGFR <60 mL/min/1.73 m2 defines CKD. Patients with eGFR values >/=60 mL/min/1.73 m2 may also have CKD if evidence of persistent proteinuria is present. The original MDRD equation for estimated GFR is not valid for patients less than 18 years of age. Additional information may be found at www.kdoqi.org. 11 OPERATION/PROCEDURE U/S guided biopsies. DIAGNOSIS: FINAL REPORT, IMMUNOHISTOCHEMISTRY STUDIES COMPLETED PART 1: "RIGHT BREAST 9:00 3 CM., ULTRASOUND GUIDED BIOPSIES": INVASIVE DUCTAL CARCINOMA, HIGH GRADE, SEE MICROSCOPIC DESCRIPTION. DUCTAL CARCINOMA IN SITU, SOLID TYPE, HIGH GRADE. PART 2: "RIGHT BREAST 9:00 2 CM., ULTRASOUND GUIDED BIOPSIES": INVASIVE DUCTAL CARCINOMA, HIGH GRADE, SEE MICROSCOPIC DESCRIPTION. DUCTAL CARCINOMA IN SITU, FLAT TYPE, HIGH GRADE. PART 3: "LYMPH NODE, LEFT AXILLARY, ULTRASOUND GUIDED BIOPSY": LYMPHOID TISSUE WITHOUT EVIDENCE OF MALIGNANCY. MYA/CASEY/sacha 5976 INTERPRETATION COMMENT Commentary from Bryant Hooker M.D.: After relating the preliminary report on the morning of signout to Dr. Enamorado, I double checked the requisition and spoke with Gini, who assisted Dr. Dumont. I am reassured the diagnosis locations listed on this preliminary report are concordant with the submitted and sampled tissue. GROSS Part 1. "RIGHT BREAST BIOPSY, 9:00, 3 CM.". The specimen is received in an appropriately labeled container. This contains three cores of pink-white soft tissue. The shortest measures 1.3 cm., the longest is 1.5 cm.; submitted in toto within a single cassette. GROSS (Continued) Part 2. "RIGHT BREAST BIOPSY, 9:00, 2 CM.". The specimen is received in an appropriately labeled container. This contains two cores of pink-white soft tissue. The shortest measures 1.5, the longest is 1.7 cm.; submitted in toto within a single cassette. JW/CF Part 3. "LYMPH NODE LEFT AXILLARY". Received in formalin are three pieces of rodriguez soft tissue measuring up to 1.3 cm. in length and 0.1 cm. in diameter; submitted in toto in block 3. JW/sacha MICROSCOPIC Parts 1 and 2. Sections reveal cords of atypical ductal cells infiltrating desmoplastic stroma. Single files and rare signet ring cells are seen. Dilated ducts filled with similarly atypical ductal cells are seen. Immunohistochemistry studies were performed at [facility] and interpreted at [facility] with proper controls. These tumor cells are positive for E-cadherin in both parts. Greatest dimension: At least 1.0 cm in part 1 and 0.9 cm in part 2. Histologic type: Invasive ductal carcinoma. Histologic grade (More grading system): III Nuclear pleomorphism: Marked, score=3. Mitotic count: >10 mitosis per 10 high power winter in both parts, score=3. Tubule formation: Less than 10%, score=3. In situ component: Ductal carcinoma in situ, high grade, flat and solid type. Vascular invasion: Indeterminate. Perineural invasion: Not seen. Estrogen receptor: > 90% nuclear stain, high positive in both parts. Progesterone receptor: Approximately 5-10% nuclear stain in both parts. Var5glf: 3+ in both parts. Part 3. Sections reveal lymphoid tissue without evidence of malignancy. PRE OPERATIVE DIAGNOSIS Right breast mass, suspicious left lymph node. REVIEW CODE CODE: I Signed BRYANT HOOKER MD 11/06/12 1512 NAVEED MARTINEZ MD 11/07/12 1746 Procedures Date Code Description Status 10/16/2018 72168 Colonoscopy,W/Directed Submucosal Injections, Any Completed Substance 10/16/2018 97835 Colonoscopy With Biopsy Completed 10/16/2018 [id number] Colonoscopy Completed 10/27/2017 [id number] Mammogram Completed 09/19/2017 [id number] Bone Mineral Density Test Completed 02/11/2016 25 Disability Form Completed 03/04/2014 63664 Remove venous access, +subq port or pump, central or Completed peripheral 01/21/2014 [id number] Mammogram Completed 05/22/2013 75543 Mastectomy; partial with axillary lymphadenectomy Completed 05/22/2013 05575 Anesthesia, Integumentary, Chest Anterior, Unspec Completed 12/05/2012 97363 Insert tunneled central venous catheter with Completed subcutaneous pump 12/05/2012 21393 Anesthesia Access To Central Venous Circulation Completed 12/04/2012 70274 EKG Interpretation And Report Only Completed 10/27/2012 [id number] Mammogram Completed Encounters Type Date Location Provider Dx Diagnosis Office Visit 10/31/2018 Russel Ruvalcaba MD D12.5 Benign neoplasm of 11:00a sigmoid colon D12.0 Benign neoplasm of cecum Office Visit 09/28/2018 10:00a Russel Ruvalcaba MD Z12.11 Encounter for screening for malignant neoplasm of colon Z80.0 Family history of malignant neoplasm of digestive organs Z71.6 Tobacco abuse counseling Office Visit 09/26/2013 2:00p Surgical Office Fazal Enamorado, V10.3 History Personal Malignant Neoplasm Breast 174.9 Malignant Neoplasm Female Breast Unspec Office Visit 04/25/2013 2:15p Surgical Office Fei 174.9 Malignant Neoplasm MD Fazal Female Breast Unspec Office Visit 11/22/2012 11:30a Surgical Office [facility]i V67.09 Follow Up MD Fazal Examination Following Other Surgery 174.9 Malignant Neoplasm Female Breast Unspec Office Visit 11/08/2012 3:30p Surgical Office [facility]i, 174.9 Malignant MD Fazal Neoplasm Female Breast Unspec Office Visit 11/01/2012 1:30p Surgical Office [facility], 611.72 Lump Or Mass MD Fazal Breast Plan of Treatment 10/31/2018 - Russel Madrigal, MDD12.5 Benign neoplasm of sigmoid colonComments: repeat colon in 3 years. Advised that children should start screening in early 40sFollow up:3 year follow up 3508L82.0 Benign neoplasm of cecumFollow up: repeat colon in 3 years 2021
--- OUTSIDE RECORDS SUMMARY | 2018-11-07 09:59 | XMS REPORT | Continuity of Care Document ---
:1960 External Reference #:[id number] Author Name Russel Madrigal MD Address [address] [place] [address] Care Team Providers Name Role Phone Carrie Dangelo RNNP Care Team Information Certified Surgical Technician Unavailable Era Mendez FNP Primary Care Physician Unavailable Payers Date Identification Numbers Payment Provider Subscriber Policy Number: [id number] Medicaid Shannan Zafar PayID: [id number] [place] [address] Expires: 2012 Policy Number: [id number] Healthy Living Partner Shannan Zafar PayID: [id number] [place] [address] Advance Directives Description No Information Available Problems [...] Diet Patient follows no dietary restrictions 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 Tobacco [...] CPT Code Status Date Vaccine Lot # [id number] Given 07/14/2018 Influenza Virus Vaccine, Quadrivalent, 36 Mos+, [id number] Vital Signs Date Vital Result Comment 10/31/2018 11:07am BP Systolic 123 mmHg BP Diastolic 88 mmHg Body Temperature 98.5 F Heart Rate 96 /min Respiratory Rate 20 /min Height 64.50 inches 5'4.50" Weight 177.38 lb BMI (Body Mass Index) 30.0 kg/m2 BSA (Body Surface Area) 1.87 m2 [place] body weight in kilograms 56 kg O2 % BldC Oximetry 91 % Ra Pain Level 0 09/28/2018 9:56am BP Systolic Sitting Left Arm 133 mmHg BP Diastolic Sitting Left Arm 83 mmHg Heart Rate 97 /min Respiratory Rate 18 /min Height 64.50 inches 5'4.50" Weight 180.00 lb BMI (Body Mass Index) 30.4 kg/m2 BSA (Body Surface Area) 1.88 m2 [place] body weight in kilograms 56 kg O2 % BldC Oximetry 93 % 07/14/2018 1:04pm BP Systolic Sitting Left Arm 116 mmHg BP Diastolic Sitting Left Arm 74 mmHg Heart Rate 84 /min Respiratory Rate 18 /min Height 64.50 inches 5'4.50" Weight 179.00 lb BMI (Body Mass Index) 30.2 kg/m2 BSA (Body Surface Area) 1.88 m2 [place] body weight in kilograms 56 kg 05/30/2013 [...] 6.5-7.5 Ua Blood - Negative Ua Specific [place] 1.020 1.010-1.030 Ua Ketones - Negative Ua Bilirubin - Negative Ua Glucose - Negative T7/TSH 07/14/[address] T3 Uptake 30 % Low 31-39 1 [address] [place] [address] [phone] Thyroxine (T4) 11.2 g/dL N 4.7-13.3 T7 3.36 g/dL Low 5.0-12.0 Thyroid Stim Hormone 1.41 uIU/mL N 0.30-4.20 CBC W/Automated Diff 07/14/[address] White Blood 7.4 K/uL N 3.1-10.7 [address] [facility] [place] [address] [phone] Red Blood Count 4.46 M/uL N 3.90-5.40 [...] 40.4-72.8 Lymph % 38.4 % N 20.0-42.0 [place] % 6.4 % N 4.3-13.2 Eo% 3.0 % N 0.0-6.6 Bas% 0.3 % N 0.0-1.1 Neut# 3.84 K/uL N 1.8-7.0 Lymph # 2.84 K/uL N 1.0-4.0 [place] # 0.47 K/uL N 0.3-0.9 Eos # 0.22 K/uL N 0.0-0.5 Baso # 0.02 K/uL N 0.0-0.1 Comprehensive Metabolic 07/14/[address] Glucose 78 mg/dL N 74 -106 Panel [address] [place], [place] [id number] [phone] BUN 12 mg/dL N 7-18 Creatinine 0.7 [...] U/L N 45-117 LDL Cholesterol Profile 07/14/2018 [facility] [address] Cholesterol 168 mg/dL <[address] [place] [address] [phone] Triglycerides 85 mg/dL <150 5 HDL Cholesterol 69 mg/dL >40 6 LDL-Cholesterol 82 mg/dL < 100 7 Glycohemoglobin A1c 07/14/2018 [facility] [address] Glycohemoglobin 5.6 % N 4.2-6.[address] (A1c) [place] [address] [phone] eAG 114 mg/dL Laboratory test 05/22/2013 [facility] Breast Biopsy - See Note [address] [place] [address] [phone] Basic Metabolic 05/18/2013 [facility] Glucose 74 mg/dL Low 76-[address] [place] [address] [phone] BUN 7 mg/dL 5-23 Creatinine 0.7 mg/dL 0.5-1.4 Glom Filtration Rate, Estimate >60 mL/min >60 If >60 mL/min >60 10 BUN/Creat 10.0 ratio Sodium 140 mmol/L 136-145 Potassium 4.3 mmol/L 3.5-5.1 Chloride 110 mmol/L High 98-107 Carbon Dioxide 24 mEq/L 18-29 Anion Gap 10 mEq/L 8-16 Calcium 11.5 mg/dL High 8.5-10.1 CBC 05/18/2013 [facility] White Blood Count 5.1 K/uL 3.1-10.[address] [place] [address] [phone] Red Blood Count 3.15 M/uL Low 3.90-5.40 Hemoglobin 11.5 gm/dL Low 11.6-15.8 Hematocrit 35.8 % Low 36.0-46.1 Mean Cell Volume 113.7 fl High 80.9-99.0 Mean Corpuscular HGB 36.5 pg High 25.9-32.7 Mean Corpuscular HGB Conc 32.1 g/dL 30.8-34.3 Platelet Count 325 K/uL 155-360 Red Cell Distri Width %CV 15.2 % High 11.7-14.4 Mean Platelet Volume 9.5 fL 8.9-12.4 Laboratory test 11/03/2012 [facility] Lymph Node Biopsy See Note 11 finding [address] [place] [address] [phone] 1 Z13.0 2 Note: Persistent reduction for [...] for more aggressive treatment of glycemia. The [place] [employer] recommends that a primary goal [...] prior to surgery, per Dr. Enamorado's office ([place]). The diffuse fibrosis with focal calcification is [...] approximating 1.1 x 0.7 x 0.6 cm. Education Site Manager sections are submitted within six lettered cassettes [...] ductal carcinoma. Histologic grade: High grade, see ([id number]). In situ component: Ductal carcinoma in situ, high grade, solid type. Margins: No malignancy seen at inked margins. Ductal carcinoma in situ is less than 1 mm from lateral margin. Vascular invasion: Not seen. Perineural invasion: Not seen. Pathologic staging: pT1c, N0, MX (tumor size according to previous biopsy, [id number]). Hormonal receptors and Nkv4itn reported in DJ57-237: Estrogen receptor: > 90% nuclear stain, high positive. Progesterone receptor: 5-10% nuclear stain, positive. qif3rad: 3+. PRE OPERATIVE DIAGNOSIS Right breast cancer [...] LYMPHOID TISSUE WITHOUT EVIDENCE OF MALIGNANCY. MYA/CASEY/sacha 6481 INTERPRETATION COMMENT Commentary from Bryant Hooker M.D.: [...] are seen. Immunohistochemistry studies were performed at [facility] and interpreted at [facility] with proper controls. These tumor cells are [...] Approximately 5-10% nuclear stain in both parts. Aiq4rmy: 3+ in both parts. Part 3. Sections reveal lymphoid tissue without evidence of malignancy. PRE OPERATIVE DIAGNOSIS Right breast mass, suspicious left lymph node. REVIEW CODE CODE: I Signed BRYANT HOOKER MD 11/06/12 1512 NAVEED MARTINEZ MD 11/07/12 1746 Procedures Date Code Description Status 10/16/2018 54487 Colonoscopy,W/Directed Submucosal Injections, Any Completed Substance 10/16/2018 28130 Colonoscopy With Biopsy Completed 10/16/2018 [id number] Colonoscopy Completed 10/27/2017 [id number] Mammogram Completed 09/19/2017 [id number] Bone Mineral Density Test Completed 02/11/2016 25 Disability Form Completed 03/04/2014 35936 Remove venous access, +subq port or pump, central or Completed peripheral 01/21/2014 [id number] Mammogram Completed 05/22/2013 65674 Mastectomy; partial with axillary lymphadenectomy Completed 05/22/2013 32204 Anesthesia, Integumentary, Chest Anterior, Unspec Completed 12/05/2012 76811 Insert tunneled central venous catheter with Completed subcutaneous pump 12/05/2012 46138 Anesthesia Access To Central Venous Circulation Completed 12/04/2012 70915 EKG Interpretation And Report Only Completed 10/27/2012 [id number] Mammogram Completed Encounters Type Date Location Provider Dx Diagnosis Office Visit 09/28/2018 Russel Ruvalcaba MD Z12.11 Encounter for 10:00a screening for malignant neoplasm of colon Z80.0 [...] Unspec Office Visit 11/08/2012 3:30p Surgical Office [facility] 174.9 Malignant MD [facility] Neoplasm Female Breast Unspec Office Visit 11/01/2012 1:30p Surgical Office [facility], 611.72 Lump Or Mass MD [facility] Breast Plan of Treatment 09/28/2018 - Russel Madrigal MDZ12.11 Encounter for screening for malignant neoplasm of colonNew Orders:Colonoscopy, Ordered: 09/28/18Comments:occasional blooduncle with colon vreztmI28.0 Family history of malignant neoplasm of digestive lipwfqS37.6 Tobacco abuse counseling
[2018-11-07 10:10] VITALS: BP 119/72
--- NOTE | 2018-11-07 10:25 | UC ---
Respiratory Complaint HPI - HPI Summary HPI Summary: cough x 5 days chest congestion , nasal congestion , pnd, no fever, + chills, body aches, nausea , vomiting , - History of Current Complaint Chief Complaint: UCGeneralIllness Stated Complaint: COUGH, VOMITING, BODY ACHES Time Seen by Provider: 11/07/18 10:17 Hx Obtained From: Patient Hx Last Menstrual Period: n/a Onset/Duration: Gradual Onset, Lasting Days - 5, Still Present Timing: Constant Severity Initially: Moderate Severity Currently: Moderate Pain Intensity: 9 Character: Cough: Nonproductive Aggravating Factors: Exertion, Deep Breaths Alleviating Factors: Nothing Associated Signs And Symptoms: Positive: Chills, URI, Nasal Congestion. Negative: Dyspnea, Fever, Pleuritic Chest Pain, Wheezing, Hemoptysis, Dizziness , Calf Pain, Calf Swelling, Hoarseness, Sinus Discomfort - Allergies/Home Medications Allergies/Adverse Reactions: Allergies Allergy/AdvReac Type Severity Reaction Status Date / Time Penicillins Allergy Hives Verified 11/07/18 10:05 PMH/Surg Hx/FS Hx/Imm Hx Cancer History: Breast Cancer Other History Of: Negative For: HIV, Hepatitis B, Hepatitis C - Surgical History Surgical History: Yes Surgery Procedure, Year, and Place: fistula repair, PARATHYROID SURGERY. right side breast lumpectomy - Family History Known Family History: Positive: Cardiac Disease, Hypertension Negative: Diabetes Family History: no cardio vascular issues in patients lineage - Social History Alcohol Use: Rare Substance Use Type: None Smoking Status (MU): Heavy Every Day Tobacco Smoker Type: Cigarettes Amount Used/How Often: 1/2 PPD Length of Time of Smoking/Using Tobacco: 20 YRS Have You Smoked in the Last Year: Yes Household Exposure Type: Cigarettes - Immunization History Most Recent Influenza Vaccination: none Vaccination Up to Date: No Review of Systems All Other Systems Reviewed And Are Negative: Yes Constitutional: Positive: Chills, Fatigue Skin: Positive: Negative Eyes: Positive: Negative ENT: Positive: Nasal Discharge Respiratory: Positive: Cough Cardiovascular: Positive: Negative Musculoskeletal: Positive: Arthralgia, Myalgia Neurological: Positive: Weakness Psychological: Positive: Negative Is Patient Immunocompromised?: No Physical Exam Triage Information Reviewed: Yes Appearance: Well-Appearing, No Pain Distress, Well-Nourished Vital Signs: Initial Vital Signs Temp 99.9 F 11/07/18 10:06 Pulse 96 11/07/18 10:06 Resp 22 11/07/18 10:06 BP 119/72 11/07/18 10:06 Pulse Ox 96 11/07/18 10:06 Vital Signs Reviewed: Yes Eye Exam: Normal Eyes: Positive: Conjunctiva Clear ENT: Positive: Normal ENT inspection, Hearing grossly normal, Pharynx normal, Nasal congestion Neck: Positive: Supple, Nontender, No Lymphadenopathy Respiratory: Positive: Chest non-tender, Lungs clear, Normal breath sounds, No respiratory distress Cardiovascular: Positive: RRR, No Murmur, Pulses Normal Abdominal Exam: Normal Abdomen Description: Positive: Nontender, Soft. Negative: CVA Tenderness (R), CVA Tenderness (L), Distended, Guarding Bowel Sounds: Positive: Present UC Diagnostic Evaluation - Laboratory O2 Sat by Pulse Oximetry: 96 Respiratory Course/Dx - Differential Dx/Diagnosis Provider Diagnosis: Viral illness Discharge - Sign-Out/Discharge Documenting (check all that apply): Patient Departure All imaging exams completed and their final reports reviewed: No Studies - Discharge Plan Condition: Stable Disposition: HOME Patient Education Materials: Viral Syndrome (ED) Forms: *School Release Referrals: Era Mendez NP [Primary Care Provider] - If Needed - Billing Disposition and Condition Condition: STABLE Disposition: Home
[2018-11-07 10:37] LABS: Influenza A Molecular POSITIVE (Negative)
== END 2018-11-07 10:53 | disposition home or self-care (01) ==
LOC: UCCORT 09:37
DX: B34.9 Viral infection, unspecified (principal); R11.2 Nausea with vomiting, unspecified; R09.89 Other specified symptoms and signs involving the circulatory and respiratory systems; R09.81 Nasal congestion; R52 Pain, unspecified; R05 Cough; F17.210 Nicotine dependence, cigarettes, uncomplicated; Z88.0 Allergy status to penicillin
CPT/HCPCS: 99211; G0463

== ENCOUNTER 2019-11-27 10:22 | Emergency (ER) | payer MEDICAID ==
[2019-11-27 11:31] VITALS: BP 140/104
[2019-11-27 11:50] LABS: Influenza A Molecular Negative (Negative); Influenza B Molecular Negative (Negative)
--- NOTE | 2019-11-27 11:51 | UC ---
Respiratory Complaint HPI - HPI Summary HPI Summary: cough x 2 days cough is dry , worse with deep breathing, better with rest, sore throat, nasal congestion , pnd, fever, chills and body aches concern about the flu - History of Current Complaint Chief Complaint: UCRespiratory Stated Complaint: COUGH,ACHES Time Seen by Provider: 11/27/19 11:34 Hx Obtained From: Patient Hx Last Menstrual Period: n/a Onset/Duration: Gradual Onset, Lasting Days - 2, Still Present Timing: Constant Severity Initially: Moderate Severity Currently: Moderate Pain Intensity: 0 Character: Cough: Nonproductive Aggravating Factors: Exertion, Deep Breaths Alleviating Factors: Nothing Associated Signs And Symptoms: Positive: Fever, Chills, Wheezing, URI, Nasal Congestion. Negative: Dyspnea, Calf Pain - Allergies/Home Medications Allergies/Adverse Reactions: Allergies Allergy/AdvReac Type Severity Reaction Status Date / Time Penicillins Allergy Hives Verified 11/27/19 11:27 Home Medications: Home Medications Venlafaxine HCl [Effexor Xr] 75 mg PO DAILY 09/10/14 [History Confirmed 11/27/19 ] Anastrozole [Arimidex] 1 mg PO DAILY 10/29/15 [History Confirmed 11/27/19] traZODone TAB* [Desyrel TAB*] 50 mg PO BEDTIME PRN 01/07/16 [History Confirmed 11/27/19] Dm/PE/Acetaminophen/Doxylamine [Vicks Dayquil/Nyquil Cold] 30 ml PO Q6H PRN 07/08 [History Confirmed 11/27/19] PMH/Surg Hx/FS Hx/Imm Hx Cancer History: Breast Cancer Other History Of: Negative For: HIV, Hepatitis B, Hepatitis C - Surgical History Surgical History: Yes Surgery Procedure, Year, and Place: Right Breast Lumpectomy, 2013, [place]; fistula repair, PARATHYROID SURGERY - Family History Known Family History: Positive: Cardiac Disease, Hypertension Negative: Diabetes Family History: no cardio vascular issues in patients lineage - Social History Alcohol Use: Rare Substance Use Type: None Smoking Status (MU): Heavy Every Day Tobacco Smoker Type: Cigarettes Amount Used/How Often: 1/2 PPD Length of Time of Smoking/Using Tobacco: Since Age 16 Have You Smoked in the Last Year: Yes Household Exposure Type: Cigarettes - Immunization History Most Recent Influenza Vaccination: none Vaccination Up to Date: No Review of Systems All Other Systems Reviewed And Are Negative: Yes Constitutional: Positive: Fever, Chills, Fatigue Skin: Positive: Negative Eyes: Positive: Negative ENT: Positive: Negative Respiratory: Positive: Cough Cardiovascular: Positive: Negative Gastrointestinal: Positive: Negative Genitourinary: Positive: Negative Is Patient Immunocompromised?: No Physical Exam Triage Information Reviewed: Yes Appearance: Well-Appearing, No Pain Distress, Well-Nourished Vital Signs: Initial Vital Signs Temp 99 F 11/27/19 11:25 Pulse 113 11/27/19 11:25 Resp 20 11/27/19 11:25 BP 140/104 11/27/19 11:25 Pulse Ox 96 11/27/19 11:25 Vital Signs Reviewed: Yes Eye Exam: Normal Eyes: Positive: Conjunctiva Clear ENT: Positive: Normal ENT inspection, Hearing grossly normal, Pharynx normal, TMs normal Neck: Positive: Supple, Nontender, No Lymphadenopathy Respiratory: Positive: Chest non-tender, Lungs clear, Normal breath sounds Cardiovascular: Positive: No Murmur, Tachycardia Abdominal Exam: Normal Abdomen Description: Positive: Soft Bowel Sounds: Positive: Present Musculoskeletal Exam: Normal Neurological: Positive: Alert Skin Exam: Normal Respiratory Course/Dx - Differential Dx/Diagnosis Provider Diagnosis: Viral illness, Elevated BP without diagnosis of hypertension Discharge ED - Sign-Out/Discharge Documenting (check all that apply): Patient Departure All imaging exams completed and their final reports reviewed: No Studies - Discharge Plan Condition: Stable Disposition: HOME Patient Education Materials: Viral Syndrome (ED), Hypertension (ED) Referrals: Era Mendez NP [Primary Care Provider] - 7 Days Additional Instructions: monitor your bp daily follow up with your pcp in one week - Billing Disposition and Condition Condition: STABLE Disposition: Home
== END 2019-11-27 12:01 | disposition home or self-care (01) ==
LOC: UCCORT 10:22
DX: R03.0 Elevated blood-pressure reading, without diagnosis of hypertension (principal); B34.9 Viral infection, unspecified; R05 Cough; J02.9 Acute pharyngitis, unspecified; R09.81 Nasal congestion; M79.10 Myalgia, unspecified site; Z88.0 Allergy status to penicillin; R53.83 Other fatigue; Z85.3 Personal history of malignant neoplasm of breast; F17.210 Nicotine dependence, cigarettes, uncomplicated
CPT/HCPCS: 99211; G0463